=== PATIENT | male | born 1980 | race Two or more races ===

== ENCOUNTER → 2020-08-25 | Outpatient (CLI) | payer BC ==
[2016-04-01 09:01] VITALS: BP 119/82
[~2020-08-25] MED LIST: AMLO-187 PO; APIX2.5T PO; APIX5TAB3 PO; BUPR75TA5 PO; DOXY100C2 PO; Enoxaparin Sodium SQ; HYDR-2155 PO; HYDR12.553 PO; LISI-338 PO; METF500T16 PO; NEBI5TAB2 PO; PANT20TA58 PO; RANI150T2 PO; WARF10TA45 PO
--- NOTE | 2020-08-25 16:05 | RAD ---
Right lower extremity venous duplex study 08/25/2020 4:02 PM Clinical History: Reason: RT LEG PAIN / Spl. Instructions: / History: Technique: Using a combination of real time ultrasound imaging and color-flow and pulse Doppler imaging techniques, including spectral analysis, graded compression and augmentation, duplex evaluation of the deep venous system of the right lower extremity was performed. Multiple images were obtained. Findings: There is no sonographic evidence of deep venous thrombosis involving the visualized deep venous structures of the right lower extremity Impression: No evidence of deep venous thrombosis involving the right lower extremity Electronically signed by: Sumit Joaquin MD (08/25/2020 4:02 PM) [id number]
== END ==
LOC: US 15:13
PROVIDERS: ATTEND Family Medicine
DX: M79.604 Pain in right leg (principal)
CPT/HCPCS: 93971

== ENCOUNTER → 2021-02-11 | Outpatient (CLI) | payer BC ==
[~2021-02-11] MED LIST changes: +CASIRIVIMAB/IMDEVIMAB 1200/1200mg in IV NS TV=250 ML IV ONE; -LISI-338 PO; +LISI-517 PO
[2021-02-11 08:58] VITALS: BP 148/88
== END | disposition home or self-care (01) ==
LOC: OPINF 09:01
PROVIDERS: ATTEND Family Medicine
DX: Z23 Encounter for immunization (principal); U07.1 COVID-19
CPT/HCPCS: J7050; M0243; Q0243